=== PATIENT | female | born 1965 | race Caucasian/White ===

== ENCOUNTER 2018-11-30 08:52 | Emergency (ER) | payer SELFPAY ==
[2018-11-30] MEDS ORDERED: Albuterol/Ipratropium 3.0-0.5 MG/3 ML Neb Soln NEB ONE (09:17)
--- NOTE | 2018-11-30 09:21 | EDM.PDOC ---
ED HPI GENERAL MEDICAL PROBLEM - General Chief Complaint: Respiratory Problem Stated Complaint: SOB Time Seen by Provider: 11/30/18 09:15 - History of Present Illness INITIAL COMMENTS - FREE TEXT/NARRATIVE: HISTORY AND PHYSICAL: History of present illness: Patient is 53-year-old white female who presents with concern of cough and shortness of breath after having cleaned her bathroom with a bleach product she does not recall any mixture of pneumonia or other noxious agent this was a pure bleach type product and bathroom she did have an ear cleaning type product on it the same time she is on a relatively close a. She denies chest pain fever chills nausea or vomiting patient is a smoker Review of systems: As per history of present illness and below otherwise all systems reviewed and negative. Past medical history: As per history of present illness and as reviewed below otherwise noncontributory. Surgical history: As per history of present illness and as reviewed below otherwise noncontributory. Social history: No reported history of drug or alcohol abuse. Family history: As per history of present illness and as reviewed below otherwise noncontributory. Physical exam: HEENT: Atraumatic, normocephalic, pupils reactive, negative for conjunctival pallor or scleral icterus, mucous membranes moist, throat clear, neck supple, nontender, trachea midline. Lungs: Slightly coarse, breath sounds equal bilaterally, chest nontender. Heart: S1S2, regular, negative for clicks, rubs, or JVD. Abdomen: Soft, nondistended, nontender. Negative for masses or hepatosplenomegaly. Negative for costovertebral tenderness. Pelvis: Stable nontender. Genitourinary: Deferred. Rectal: Deferred. Extremities: Atraumatic, negative for cords or calf pain. Neurovascular unremarkable. Neuro: Awake, alert, oriented. Cranial nerves II through XII unremarkable. Cerebellum unremarkable. Motor and sensory unremarkable throughout. Exam nonfocal. Diagnostics: Chest x-ray Therapeutics: Albuterol ipratropium nebulizer Impression: #1 noxious exposure #2 cough Definitive disposition and diagnosis as appropriate pending reevaluation and review of above. - Related Data Allergies Allergy/AdvReac Type Severity Reaction Status Date / Time amoxicillin Allergy Hives Verified 11/30/18 09:00 azithromycin Allergy Hives Verified 11/30/18 09:00 Antibiotics Allergy Other Uncoded 11/30/18 09:00 Home Meds: Home Meds Multivitamin [Multi-Vitamin Daily] 11/30/18 [History] Past Medical History - Past Health History Medical/Surgical History: Denies Medical/Surgical History Social & Family History - Family History Family Medical History: Noncontributory - Tobacco Use Smoking Status *Q: Light Tobacco Smoker Years of Tobacco use: 10 Packs/Tins Daily: 0.3 - Recreational Drug Use Recreational Drug Use: No ED ROS GENERAL - Review of Systems Review Of Systems: ROS reveals no pertinent complaints other than HPI. ED EXAM, GENERAL - Physical Exam Exam: See Below (See dictation) Course - Vital Signs Last Recorded V/S: Last Vital Signs Temp 35.8 C 11/30/18 08:55 Pulse 87 11/30/18 08:55 Resp 18 11/30/18 08:55 BP 133/83 11/30/18 08:55 Pulse Ox 95 11/30/18 08:55 - Orders/Labs/Meds Orders: Active Orders 24 hr Category Date Time Status RT Aerosol Therapy [RC] ASDIRECTED Care 11/30/18 09:18 Active Meds: Medications Discontinued Medications Generic Name Dose Route Start Last Admin Trade Name Freq PRN Reason Stop Dose Admin Albuterol/Ipratropium 3 ml 11/30/18 09:17 11/30/18 09:27 Duoneb 3.0-0.5 Mg/3 Ml NEB 11/30/18 09:18 3 ml ONETIME ONE Administration Departure - Departure Time of Disposition: 10:20 Disposition: Home, Self-Care 01 Condition: Good Clinical Impression: Pneumonitis, History of exposure to noxious chemical - Discharge Information Forms: ED Department Discharge Additional Instructions: The following information is given to patients seen in the emergency department who are being discharged to home. This information is to outline your options for follow-up care. We provide all patients seen in our emergency department with a follow-up referral. The need for follow-up, as well as the timing and circumstances, are variable depending upon the specifics of your emergency department visit. If you don't have a primary care physician on staff, we will provide you with a referral. We always advise you to contact your personal physician following an emergency department visit to inform them of the circumstance of the visit and for follow-up with them and/or the need for any referrals to a consulting specialist. The emergency department will also refer you to a specialist when appropriate. This referral assures that you have the opportunity for followup care with a specialist. All of these measure are taken in an effort to provide you with optimal care, which includes your followup. Under all circumstances we always encourage you to contact your private physician who remains a resource for coordinating your care. When calling for followup care, please make the office aware that this follow-up is from your recent emergency room visit. If for any reason you are refused follow-up, please contact the [facility] emergency department at and asked to speak to the emergency department charge nurse. Albuterol Medrol as prescribed. Smoking follow-up primary medical doctor return as discussed - My Orders Last 24 Hours: My Active Orders 11/30/18 09:18 RT Aerosol Therapy [RC] ASDIRECTED - Assessment/Plan Last 24 Hours: My Active Orders 11/30/18 09:18 RT Aerosol Therapy [RC] ASDIRECTED
--- NOTE | 2018-11-30 10:11 | CR ---
INDICATION: Pain. Shortness of breath. TECHNIQUE: One view. FINDINGS: Strandy and patchy bibasilar airspace opacity, slightly more prominent on the left. Pulmonary vascularity is within normal limits. Heart size is normal. IMPRESSION: Bibasilar airspace opacities may be atelectasis, aspiration or potentially multifocal pneumonia. Dictated by Poli Ralph MD @ Nov 30 2018 10:08AM Signed by Dr. Poli Ralph @ Nov 30 2018 10:10AM
== END 2018-11-30 10:38 | disposition home or self-care (01) ==
LOC: MW.ED 08:52
DX: J18.9 Pneumonia, unspecified organism (principal); Z77.128 Contact with and (suspected) exposure to other hazards in the physical environment; F17.210 Nicotine dependence, cigarettes, uncomplicated; Z79.899 Other long term (current) drug therapy; Z88.1 Allergy status to other antibiotic agents
CPT/HCPCS: 71045; 71045-26; 94640; 99283; 99284-25; J7620-GY